=== PATIENT | male | born 1985 | race Caucasian/White ===

== ENCOUNTER → 2023-05-04 14:27 | Outpatient (CLI) | payer OTHER, SELFPAY ==
[2023-05-04 22:22] LABS: Urine N gonorrhoeae NOT DETECTED
[2023-05-04 22:26] LABS: Urine Chlamydia NOT DETECTED
== END ==
PROVIDERS: PCP Physician Assistant Medical; Visit Provider Physician Assistant Medical
DX: A64 Unspecified sexually transmitted disease (principal); R10.30 Lower abdominal pain, unspecified
CPT/HCPCS: 87491; 87591

== ENCOUNTER → 2023-05-13 10:00 | Outpatient (CLI) | payer OTHER, SELFPAY ==
[2023-05-13 20:49] LABS: Add Manual Diff / Slide Review NO; Basophils Absolute Auto 0 /uL (0-100); Basophils Percent Auto 0.7 % (0-2); Eosinophils Absolute Auto 200 /uL (0-450); Eosinophils Percent Auto 2.5 % (2-4); Hematocrit 48.5 % (41-53); Hemoglobin 16.6 g/dL (13.5-17.5); Lymphocytes Absolute Auto 1800 /uL (1100-4500); Lymphocytes Percent Auto 28.6 % (25-40); Mean Corpuscular HGB Conc 34.3 % (30-36); Mean Corpuscular Hemoglobin 29.9 PG (26-34); Mean Corpuscular Volume 87.2 fL (80-100); Monocytes Absolute Auto 400 /uL (0-900); Monocytes Percent Auto 6.8 % (3-14); Neutrophils Absolute Auto 3800 /uL (1500-7000); Neutrophils Percent Auto 61.4 % (50-75); Platelet Count 183 X10^3/uL (150-400); Red Blood Cell Count 5.56 X10^6/uL (4.5-5.9); Red Cell Distribution Width 13.1 % (11.6-14.8); White Blood Cell Count 6.1 X10^3/uL (4.5-11.0)
[2023-05-13 20:51] LABS: Alanine Aminotransferase 43 IU/L (<50); Albumin 4.6 g/dL (3.5-5.0); Albumin Globulin Ratio 1.4 (1.0-2.8); Alkaline Phosphatase 48 U/L (38-126); Aspartate Aminotransferase 31 IU/L (17-59); Blood Urea Nitrogen 13 mg/dL (9-20); C-Reactive Protein Quant 0.7 mg/dL (<1.0); Calcium 9.9 mg/dL (8.4-10.2); Carbon Dioxide 26 mmol/L (22-32); Chloride 101 mmol/L (98-107); Cholesterol 252 mg/dL (140-199); Estimated Glomerular Filt Rate > 60 mL/min (>60); Globulin 3.3 g/dL (1.7-4.1); Glucose 96 mg/dL (70-100); HDL Cholesterol 52 mg/dL (40-60); HEMOLYSIS < 15 (0-50); LDL Cholesterol Calculated 176 mg/dL (<100); Potassium 4.4 mmol/L (3.4-5.1); Sodium 137 mmol/L (137-145); Total Protein 7.9 g/dL (6.3-8.2); Triglycerides 119 mg/dL (35-150)
[2023-05-13 21:12] LABS: Erythrocyte Sedimentation Rate 1 MM/HR (0-15)
[2023-05-13 21:30] LABS: TSH w/ Reflex to FT4 1.65 uIU/mL (0.47-4.68)
[2023-05-13 21:39] LABS: HIV 1 & 2 Ab/Ag 4th Gen Combo NEGATIVE (NEGATIVE); Hep C Virus Ab w/Reflex Quant NEGATIVE s/c (NEGATIVE)
[2023-05-30 19:53] LABS: HSV1IGG < 0.91
[2023-05-30 20:01] LABS: HSV 2 IGG AB < 0.91
[2023-05-30 20:10] LABS: RPR Screen Non Reactive
== END ==
PROVIDERS: PCP Physician Assistant Medical; Visit Provider Physician Assistant Medical
DX: R10.30 Lower abdominal pain, unspecified (principal); R63.4 Abnormal weight loss; R53.83 Other fatigue; E78.00 Pure hypercholesterolemia, unspecified; A64 Unspecified sexually transmitted disease
CPT/HCPCS: 80053; 80061; 84443; 85025; 85651; 86140; 86592; 86695; 86696; 86803; 87389

== ENCOUNTER → 2023-05-17 11:44 | Outpatient (CLI) | payer OTHER, SELFPAY ==
[2023-05-19 11:13] LABS: Fecal Immunochemical Test Negative (Negative)
== END ==
PROVIDERS: PCP Physician Assistant Medical; Visit Provider Physician Assistant Medical
DX: R10.30 Lower abdominal pain, unspecified (principal); R63.4 Abnormal weight loss; R53.83 Other fatigue; E78.00 Pure hypercholesterolemia, unspecified
CPT/HCPCS: 82274

== ENCOUNTER → 2023-05-19 10:23 | Outpatient (CLI) | payer OTHER, SELFPAY ==
[2023-05-19 22:15] LABS: Urine N gonorrhoeae NOT DETECTED
[2023-05-19 22:21] LABS: Urine Chlamydia NOT DETECTED
== END ==
PROVIDERS: PCP Physician Assistant Medical; Visit Provider Physician Assistant Medical
DX: R10.30 Lower abdominal pain, unspecified (principal); Z72.51 High risk heterosexual behavior
CPT/HCPCS: 87086; 87491; 87591

== ENCOUNTER → 2023-05-20 14:08 | Outpatient (CLI) | payer OTHER, SELFPAY ==
[2023-05-20 22:12] LABS: Hepatitis B Surface Antigen NEGATIVE s/c (NEGATIVE)
[2023-05-20 22:27] LABS: HIV 1 & 2 Ab/Ag 4th Gen Combo NEGATIVE (NEGATIVE); Hep C Virus Ab w/Reflex Quant NEGATIVE s/c (NEGATIVE)
== END ==
PROVIDERS: PCP Physician Assistant Medical; Visit Provider Physician Assistant Medical
DX: Z72.51 High risk heterosexual behavior (principal)
CPT/HCPCS: 86803; 87340; 87389

== ENCOUNTER → 2023-07-19 09:12 | Outpatient (CLI) | payer OTHER, SELFPAY ==
[2023-07-19 19:40] LABS: Hepatitis B Surface Antigen NEGATIVE s/c (NEGATIVE)
[2023-07-19 19:59] LABS: HIV 1 & 2 Ab/Ag 4th Gen Combo NEGATIVE (NEGATIVE); Hep C Virus Ab w/Reflex Quant NEGATIVE s/c (NEGATIVE)
[2023-07-19 20:47] LABS: Urine N gonorrhoeae NOT DETECTED
[2023-07-19 20:54] LABS: Urine Chlamydia NOT DETECTED
[2023-07-21 06:10] LABS: RPR Screen Non Reactive (Non Reactive)
== END ==
PROVIDERS: PCP Physician Assistant Medical; Visit Provider Physician Assistant
DX: N34.2 Other urethritis (principal); Z11.3 Encounter for screening for infections with a predominantly sexual mode of transmission; Z72.51 High risk heterosexual behavior
CPT/HCPCS: 86592; 86695; 86696; 86803; 87340; 87389; 87491; 87591

== ENCOUNTER → 2023-11-18 10:43 | Outpatient (CLI) | payer OTHER, SELFPAY ==
[2023-11-18 21:49] LABS: Hepatitis B Surface Antigen NEGATIVE s/c (NEGATIVE)
[2023-11-18 22:05] LABS: HIV 1 & 2 Ab/Ag 4th Gen Combo NEGATIVE (NEGATIVE); Hep C Virus Ab w/Reflex Quant NEGATIVE s/c (NEGATIVE)
[2023-11-19 00:34] LABS: Urine N gonorrhoeae NOT DETECTED
[2023-11-19 00:39] LABS: Urine Chlamydia NOT DETECTED
[2023-11-20 05:13] LABS: RPR Screen Non Reactive (Non Reactive)
[2023-11-20 06:15] LABS: HSV 2 IGG AB < 0.91 index (0.00-0.90); HSV1IGG < 0.91 index (0.00-0.90)
== END ==
PROVIDERS: PCP Physician Assistant Medical; Visit Provider Physician Assistant Medical
DX: Z11.3 Encounter for screening for infections with a predominantly sexual mode of transmission (principal); Z72.51 High risk heterosexual behavior
CPT/HCPCS: 86592; 86695; 86696; 86803; 87340; 87389; 87491; 87591

== ENCOUNTER → 2024-01-21 11:32 | Outpatient (CLI) | payer OTHER, SELFPAY ==
[2024-01-21 18:09] LABS: Add Manual Diff / Slide Review NO; Basophils Absolute Auto 0 /uL (0-100); Basophils Percent Auto 0.7 % (0-2); Eosinophils Absolute Auto 100 /uL (0-450); Eosinophils Percent Auto 2.4 % (2-4); Hematocrit 46.6 % (41-53); Hemoglobin 15.8 g/dL (13.5-17.5); Lymphocytes Absolute Auto 1700 /uL (1100-4500); Lymphocytes Percent Auto 29.4 % (25-40); Mean Corpuscular HGB Conc 33.9 % (30-36); Mean Corpuscular Hemoglobin 29.8 PG (26-34); Mean Corpuscular Volume 87.7 fL (80-100); Monocytes Absolute Auto 400 /uL (0-900); Monocytes Percent Auto 6.1 % (3-14); Neutrophils Absolute Auto 3600 /uL (1500-7000); Neutrophils Percent Auto 61.4 % (50-75); Platelet Count 198 X10^3/uL (150-400); Red Blood Cell Count 5.31 X10^6/uL (4.5-5.9); Red Cell Distribution Width 13.2 % (11.6-14.8); White Blood Cell Count 5.9 X10^3/uL (4.5-11.0)
[2024-01-21 19:41] LABS: Urine N gonorrhoeae NOT DETECTED
[2024-01-21 20:07] LABS: Urine Chlamydia NOT DETECTED
[2024-01-22 06:10] LABS: RPR Screen Non Reactive (Non Reactive)
[2024-01-22 08:11] LABS: HSV 2 IGG AB < 0.91 index (0.00-0.90); HSV1IGG < 0.91 index (0.00-0.90)
[2024-01-24 16:17] LABS: HIV 1 & 2 Ab/Ag 4th Gen Combo NEGATIVE (NEGATIVE); Hep C Virus Ab w/Reflex Quant NEGATIVE s/c (NEGATIVE)
[2024-01-24 22:36] LABS: Hepatitis Be Antibody Non Reactive (Negative)
== END ==
PROVIDERS: PCP Physician Assistant Medical; Visit Provider Physician Assistant
DX: Z72.51 High risk heterosexual behavior (principal); N34.2 Other urethritis; R59.0 Localized enlarged lymph nodes
CPT/HCPCS: 85025; 86592; 86695; 86696; 86707; 86803; 87389; 87491; 87591

== ENCOUNTER → 2024-01-25 07:24 | Outpatient (CLI) | payer OTHER, SELFPAY ==
--- NOTE | 2024-01-25 07:25 | DI.US.S_ITS ---
PROCEDURE: US SOFT TISSUE HEAD AND NECK INDICATIONS: Right neck swelling TECHNIQUE: Real-time scanning was performed of the neck region of interest, with image documentation. COMPARISON: None. FINDINGS: Deep to the right submandibular gland, there is a 3.2 x 0.9 x 1.7 cm lymph node with a thickened cortex and indistinct fatty hilum. IMPRESSION: Mildly enlarged lymph node adjacent to the right submandibular gland. CT neck soft tissue with contrast recommended for complete evaluation. Dictated by: Praful Abdul M.D. on 01/25/2024 at 13:21 Approved by: Praful Abdul M.D. on 01/25/2024 at 13:23
== END ==
LOC: US 07:25
PROVIDERS: PCP Physician Assistant Medical; Referring Provider Physician Assistant; Visit Provider Physician Assistant
DX: R59.0 Localized enlarged lymph nodes (principal)
CPT/HCPCS: 76536

== ENCOUNTER → 2024-02-01 07:46 | Outpatient (CLI) | payer OTHER, SELFPAY ==
--- NOTE | 2024-02-01 07:47 | DI.CT.S_ITS ---
PROCEDURE: CT SOFT TISSUE NECK W CON INDICATIONS: Evaluate enlarged lymph node adjacent to R submandibular gla TECHNIQUE: After the administration of intravenous contrast, 3.0 mm axial sections acquired from the sella to the aortic arch. Additional oblique axial 3.0 mm sections acquired through the pharynx. 3 mm thick coronal and sagittal reformats were generated. For radiation dose reduction, the following was used: automated exposure control. COMPARISON: [facility], SOFT TISSUE HEAD AND NECK, 01/25/2024, 7:43. FINDINGS: Image quality: Excellent. Lymph nodes: There is no suspicious lymphadenopathy noted. Mildly prominent bilateral anterior cervical lymph nodes posterior to the submandibular glands are noted. These are likely reactive in nature. This includes the previously noted right submandibular lymph node which is similar in size, previously measuring 3.2 x 0.9 x 1.7 cm, and measuring 3.2 x 0.9 x [address] Vessels: Visualized vasculature appears patent. Neck spaces: The oropharynx, nasopharynx, and pharynx demonstrate no mucosal lesions. The vocal cords, false vocal cords, pyriform sinuses, epiglottis, vallecula, and tongue base all appear normal. Extramucosal spaces appear unremarkable. Glands: The parotid and submandibular glands appear normal. Thyroid gland is unremarkable. Miscellaneous: Visualized brain and orbits appear normal. Lung apices appear clear. Superficial soft tissues appear normal. Bones: No suspicious bony lesions. Visualized sinuses and mastoids appear unremarkable. IMPRESSION: Mildly prominent bilateral anterior cervical chain lymph nodes are likely reactive in nature. Dictated by: Wilfredo Lal M.D. on 02/01/2024 at 9:50 Approved by: Wilfredo Lal M.D. on 02/01/2024 at 9:56
== END ==
LOC: CT 07:46
PROVIDERS: PCP Physician Assistant Medical; Referring Provider Physician Assistant; Visit Provider Physician Assistant
DX: R59.0 Localized enlarged lymph nodes (principal)
CPT/HCPCS: 70491; Q9967